=== PATIENT | male | born 1995 | race African-American/Black ===

== ENCOUNTER 2017-02-22 10:14 | Emergency (ER) | payer OTHER ==
[~2017-02-22] VITALS: Ht 170.2 cm; Wt 63.6 kg
[2017-02-22 10:14] VITALS: BP 132/84
[~2017-02-22 10:14] MED LIST: MEDR4PAK PO; ROBA750T4 PO
== END 2017-02-22 13:58 | disposition left against medical advice (07) ==
LOC: M ED 10:14
DX: Z53.21 Procedure and treatment not carried out due to patient leaving prior to being seen by health care provider (principal)

== ENCOUNTER 2017-03-03 11:30 | Emergency (ER) | payer OTHER ==
[~2017-03-03] VITALS: Ht 175.3 cm; Wt 63.6 kg
[2017-03-03] MEDS ORDERED: CYCL10TA PO (13:02)
[2017-03-03] MEDS ORDERED: NAPR500T PO (13:02)
[2017-03-03 13:11] VITALS: BP 115/88
== END 2017-03-03 13:14 | disposition home or self-care (01) ==
LOC: M ED 11:30
DX: M54.42 Lumbago with sciatica, left side (principal); M51.9 Unspecified thoracic, thoracolumbar and lumbosacral intervertebral disc disorder; Z88.8 Allergy status to other drugs, medicaments and biological substances

== ENCOUNTER 2017-04-24 11:42 | Emergency (ER) | payer OTHER | END 2017-04-24 12:40 | disposition home or self-care (01) | LOC: M ED 11:42 | DX: M79.1 Myalgia (principal); R53.83 Other fatigue; R53.81 Other malaise; Z88.8 Allergy status to other drugs, medicaments and biological substances | CPT/HCPCS: 99283 ==